=== PATIENT | female | born 1990 | race Caucasian/White ===

== ENCOUNTER 2021-03-02 16:05 | Observation (INO) | payer OTHER ==
[2021-03-02 18:44] LABS: HEMOGLOBIN 11.2 gm/dl (12.3-15.3); RED BLOOD COUNT 3.73 M/UL (4.00-5.10); WHITE BLOOD COUNT 9.1 K/UL (4.5-11.0)
[2021-03-03] MEDS ORDERED: FEROSUL325 MG PO (09:32)
[2021-03-03] MEDS ORDERED: DOCUSATE SODIU250 MG PO (09:32)
[2021-03-03] MEDS ORDERED: IBUPROFEN600 MG PO (09:32)
[2021-03-07 01:08] LABS: CHLAMYDIA TRACHOMATIS, NAA Negative (Negative); NEISSERIA GONORRHOEAE, NAA Negative (Negative)
== END 2021-03-02 20:47 | disposition home or self-care (01) ==
LOC: OB 17:33
PROVIDERS: Obstetrics & Gynecology; ADMIT Obstetrics & Gynecology
DX: O44.12 Complete placenta previa with hemorrhage, second trimester (principal); O99.322 Drug use complicating pregnancy, second trimester; F11.20 Opioid dependence, uncomplicated; O99.332 Smoking (tobacco) complicating pregnancy, second trimester; F17.210 Nicotine dependence, cigarettes, uncomplicated; Z88.1 Allergy status to other antibiotic agents; Z88.5 Allergy status to narcotic agent; Z91.030 Bee allergy status; Z79.899 Other long term (current) drug therapy; Z3A.18 18 weeks gestation of pregnancy; Z20.822 Contact with and (suspected) exposure to COVID-19
CPT/HCPCS: 36415; 81001; 85025; 86900; 86901; 87661; 96360; 96361; G0378; G0379; J1885; J7120; U0002

== ENCOUNTER 2021-03-03 04:24 | Observation (INO) | payer OTHER ==
[~2021-03-03] VITALS: Ht 167.6 cm; Wt 81.6 kg
[2021-03-03 06:38] LABS: HEMOGLOBIN 10.8 gm/dl (12.3-15.3); RED BLOOD COUNT 3.53 M/UL (4.00-5.10); WHITE BLOOD COUNT 8.8 K/UL (4.5-11.0)
[2021-03-03] MEDS ORDERED: FEROSUL325 MG PO (09:32)
[2021-03-03] MEDS ORDERED: DOCUSATE SODIU250 MG PO (09:32)
[2021-03-03] MEDS ORDERED: IBUPROFEN600 MG PO (09:32)
[2021-03-03 21:05] LABS: HEMOGLOBIN 7.5 gm/dl (12.3-15.3)
[2021-03-04 07:37] LABS: HEMOGLOBIN 6.7 gm/dl (12.3-15.3)
== END 2021-03-04 14:28 | disposition home or self-care (01) ==
LOC: GENOP 04:24 → ER1 04:24 → EDSTATUS 05:39 → OB 07:14
PROVIDERS: Obstetrics & Gynecology; ADMIT Obstetrics & Gynecology
DX: O72.0 Third-stage hemorrhage (principal); O90.81 Anemia of the puerperium; D62 Acute posthemorrhagic anemia; F19.90 Other psychoactive substance use, unspecified, uncomplicated; R56.9 Unspecified convulsions; Z88.8 Allergy status to other drugs, medicaments and biological substances
CPT/HCPCS: 36415; 80307; 81001; 85014; 85018; 85025; 86850; 86900; 86901; 86920; 99284; G0378; J1170; J1885; J2001; J2250; J2370; J2405; J2550; J2590; J2704; J3010; J7120; P9016

== ENCOUNTER 2022-02-20 15:28 | Emergency (ER) | payer OTHER ==
[~2022-02-20 15:28] MED LIST: DOCUSATE SODIU250 MG PO; FEROSUL325 MG PO; IBUPROFEN600 MG PO
== END 2022-02-20 16:08 | disposition left against medical advice (07) ==
LOC: ER1 15:28
DX: Z53.21 Procedure and treatment not carried out due to patient leaving prior to being seen by health care provider (principal)